=== PATIENT | male | born 1950 | race Caucasian/White ===

== ENCOUNTER 2018-10-19 19:31 | Emergency (ER) | payer MEDICARE ==
[2018-10-19] MEDS ORDERED: Nitroglycerin 2% Ointment 1 INCH/1 GM Packet ONE (20:01)
--- NOTE | 2018-10-19 20:03 | RAD ---
FPortable chest: HISTORY: Cough and fever COMPARISON: None FINDINGS: Cardiomegaly. Vasculature and interstitial congestion suggesting interstitial edema. Small effusions cannot be excluded. No focal consolidation. IMPRESSION: Cardiomegaly with vascular and interstitial congestion.
[2018-10-19] MEDS ORDERED: Acetaminophen 500 MG TAB ONE (20:04)
[2018-10-19 20:25] LABS: ALT (SGPT) 18 U/L (8-55); AST (SGOT) 15 U/L (5-34); Albumin 4.1 g/dL (3.4-4.8); Alkaline Phosphatase 53 U/L (40-150); Anion Gap 17 mmol/L (10-20); BUN (Urea Nitrogen) 19 mg/dL (8.4-25.7); Bilirubin, Total 1.1 mg/dL (0.2-1.2); Calc. Creatinine Clearance 0 mL/min (70-130); Calcium 9.5 mg/dL (7.8-10.44); Carbon Dioxide 24 mmol/L (23-31); Chloride 103 mmol/L (98-107); Estimated GFR-MDRD 40; Globulin 3.1 g/dL (2.4-3.5); Glucose 189 mg/dL (80-115); Potassium 3.9 mmol/L (3.5-5.1); Protein, Total 7.2 g/dL (5.8-8.1); Sodium 140 mmol/L (136-145)
[2018-10-19 20:30] LABS: Eosinophils 1 % (0-10); Hemoglobin 11.7 g/dL (14.0-18.0); Hypochromia SLIGHT = 6-15 cells (100X) (0-5/hpf); Lymphocytes 4 % (21-51); MDiff Complete? YES; Mean Corpuscular HGB CONC 31.6 g/dL (32.0-36.0); Mean Corpuscular Hemoglobin 26.9 pg (27.0-31.0); Mean Corpuscular Volume 85.2 fL (78.0-98.0); Monocytes 4 % (0-10); Neutrophil 86 % (42-75); Platelet Count 139 thou/uL (130-400); Platelet Morphology Comment Appears Adequate; RBC Distribution Width 13.5 % (11.5-14.5); RBC Morphology Abnormal; Reactive Lymphocytes 5 % (0-10); Red Blood Cell (RBC) Count 4.34 mill/uL (4.70-6.10); White Blood Cell (WBC) Count 10.5 thou/uL (4.8-10.8)
[2018-10-19] MEDS ORDERED: Furosemide 40 MG/4 ML VIAL ONE (20:31)
[2018-10-19 21:10] LABS: Bilirubin Negative (Negative); Blood, Urine Negative (Negative); Clarity Clear (Clear); Glucose, Urine (Dipstick) 500 mg/dL (Negative); Leukocyte Negative (Negative); Nitrite Negative (Negative); Protein, Urine (Dipstick) 30 mg/dL (Neg-Trace); Specific Gravity, Urine 1.015 (1.005-1.030); pH, Urine 5.5 (5.0-9.0)
[2018-10-19 21:15] LABS: Bacteria/HPF None Seen HPF (None Seen); RBC/HPF 0-3 HPF (0-3); Squamous Epithelial None Seen HPF (0-3); WBC/HPF None Seen HPF (0-3)
== END 2018-10-19 22:12 | disposition short-term general hospital (02) ==
LOC: MADERS 19:31
DX: I11.0 Hypertensive heart disease with heart failure (principal); I50.9 Heart failure, unspecified; R06.03 Acute respiratory distress; R09.02 Hypoxemia; N17.9 Acute kidney failure, unspecified; R65.10 Systemic inflammatory response syndrome (SIRS) of non-infectious origin without acute organ dysfunction; I48.91 Unspecified atrial fibrillation; E11.9 Type 2 diabetes mellitus without complications; E03.9 Hypothyroidism, unspecified; E78.5 Hyperlipidemia, unspecified; E66.9 Obesity, unspecified; Z79.899 Other long term (current) drug therapy; Z79.82 Long term (current) use of aspirin; Z79.84 Long term (current) use of oral hypoglycemic drugs
CPT/HCPCS: 36416; 71045; 80053; 81003; 81015; 83605; 83880; 84443; 84484; 85025; 87040; 87804; 93005; 94760; 96374; J1940

== ENCOUNTER 2019-09-04 08:32 | Outpatient (CLI) | payer MEDICARE ==
--- NOTE | 2019-09-04 09:14 | ULT ---
ULTRASOUND RETROPERITONEUM COMPLETE: (RENAL) DATE: 09/04/2019 HISTORY: 69-year-old male with chronic kidney disease FINDINGS: Right kidney measures 10 x 6.5 x 5.5 cm. Left kidney is measured as 12.5 x 6.5 x 6 cm. There are numerous fluid-filled sacs, ranging in size from a few centimeters up to greater than 4.5 c m, replacing the entire left renal parenchyma, involving upper, lower, and mid poles. These are probably cysts, unlikely to represent severely dilated peripheral calyces. The left renal pelvis is m ildly dilated. No parenchyma is visualized that covers these fluid-filled sacs. There is no hydronephrosis of the right kidney. No moderate sized or large cyst or solid mass is identified in the right kidney. Unremarkable urinary bladder. Incidental finding of gallstone noted. IMPRESSION: 1) large number of moderate-sized cysts throughout the left renal parenchyma. 2) normal sonographic appearance of the right kidney.
== END 2019-09-04 08:33 | disposition home or self-care (01) ==
LOC: MADULT 08:32
PROVIDERS: ATTEND Internal Medicine Nephrology
DX: N18.3 Chronic kidney disease, stage 3 (moderate) (principal); N28.1 Cyst of kidney, acquired
CPT/HCPCS: 76770

== ENCOUNTER 2020-05-26 12:26 | Emergency (ER) | payer MEDICARE ==
--- NOTE | 2020-05-26 13:23 | RAD ---
RIGHT KNEE 4 VIEWS: Date: 05/26/2020 HISTORY: Fall. Right knee pain and swelling. FINDINGS/IMPRESSION: No acute fracture or dislocation is identified. A joint effusion is present. Patellar enthesophytes a re present. POS: AH
== END 2020-05-26 14:40 | disposition home or self-care (01) ==
LOC: MADERS 12:26
DX: S76.111A Strain of right quadriceps muscle, fascia and tendon, initial encounter (principal); S50.311A Abrasion of right elbow, initial encounter; M25.462 Effusion, left knee; M25.461 Effusion, right knee; M25.561 Pain in right knee; E03.9 Hypothyroidism, unspecified; R00.1 Bradycardia, unspecified; I48.91 Unspecified atrial fibrillation; E11.9 Type 2 diabetes mellitus without complications; E78.5 Hyperlipidemia, unspecified; E78.00 Pure hypercholesterolemia, unspecified; E66.9 Obesity, unspecified; Z79.4 Long term (current) use of insulin; Z87.442 Personal history of urinary calculi; Z79.82 Long term (current) use of aspirin; Z79.01 Long term (current) use of anticoagulants; W11.XXXA Fall on and from ladder, initial encounter